=== PATIENT | male | born 1995 | race Caucasian/White ===

== ENCOUNTER 2021-04-28 23:58 | Emergency (ER) | payer SELFPAY ==
[~2021-04-28] VITALS: Ht 182.9 cm; Wt 81.6 kg
[2021-04-29 00:47] VITALS: BP 140/92
== END 2021-04-29 01:15 | disposition home or self-care (01) ==
LOC: ER 23:58 → EDBD 23:58 → ER 04-29 01:10
DX: S02.2XXA Fracture of nasal bones, initial encounter for closed fracture (principal); S01.21XA Laceration without foreign body of nose, initial encounter; Y04.8XXA Assault by other bodily force, initial encounter; Y93.89 Activity, other specified; Y92.89 Other specified places as the place of occurrence of the external cause; Y99.8 Other external cause status
CPT/HCPCS: 12011